=== PATIENT | female | born 1980 | race African-American/Black ===

== ENCOUNTER 2019-09-20 09:40 | Emergency (ER) | payer OTHER ==
[2019-09-20 09:45] VITALS: BMI 30.3
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
[2019-09-20 10:59] VITALS: BP 113/73; PULSE 69; TEMP 99.7
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
== END 2019-09-20 11:40 | disposition home or self-care (01) ==
LOC: JER 09:40
DX: S50.311A Abrasion of right elbow, initial encounter (principal); S70.311A Abrasion, right thigh, initial encounter; R22.42 Localized swelling, mass and lump, left lower limb; Z3A.32 32 weeks gestation of pregnancy; W19.XXXA Unspecified fall, initial encounter
CPT/HCPCS: 99282-25

== ENCOUNTER 2019-11-12 08:10 | Inpatient (IN) | payer OTHER ==
[2019-11-12] MEDS ORDERED: CITRIC ACID/SODIUM CITRATE 30 ML UNIT-DOSE CUP PO ONE (09:43)
[2019-11-12] MEDS ORDERED: ELECTROLYTE-148 SOLN 1,000 ML IV SCH (09:45)
--- NOTE | 2019-11-12 09:51 | HP ---
Past Medical History - Admission Chief Complaint: Elective History Source: Patient Limitations to Obtaining History: No Limitations - Past Medical History ...: 1 ...Para: 0 - Past Surgical History Past Surgical History: Yes: None Hx Myomectomy: No Hx Transabdominal Cerclage: No - Smoking History Smoking history: Never smoked - Alcohol/Substance Use Hx Alcohol Use: No History of Substance Use: reports: None - Social History Usual Living Arrangement: Yes: With Spouse History of Recent Travel: No Home Medications - Allergies Allergies/Adverse Reactions: Allergies Allergy/AdvReac Type Severity Reaction Status Date / Time fluconazole Allergy Verified 11/12/19 10:47 tree nut Allergy Verified 09/20/19 09:43 Family Medical History Family History: Unremarkable Review of Systems - Review of Systems Constitutional: reports: No Symptoms Eyes: reports: No Symptoms HENT: reports: No Symptoms Neck: reports: No Symptoms Cardiovascular: reports: No Symptoms Respiratory: reports: No Symptoms Gastrointestinal: reports: No Symptoms Genitourinary: reports: No Symptoms Breasts: reports: No Symptoms Reported Musculoskeletal: reports: No Symptoms Psychiatric: reports: No Symptoms Pain Intensity: 0 Physical Exam - Maternity Constitutional: Yes: No Distress Eyes: Yes: Conjunctiva Clear HENT: Yes: Atraumatic Neck: Yes: Supple Cardiovascular: Yes: Regular Rate and Rhythm Lungs: Clear to auscultation - Abdominal Exam/OB Number of Fetuses: Single Presentation: Vertex - Physical Exam Musculoskeletal: Yes: WNL Extremities: Yes: WNL ...Motor Strength: WNL Psychiatric: Yes: Alert, Oriented Problem List - Problems (1) 39 weeks gestation of Problems reviewed: Yes Code(s): Z3A.39 - 39 WEEKS GESTATION OF (2) Placenta previa Problems reviewed: Yes Code(s): O44.00 - COMPLETE PLACENTA PREVIA NOS OR WITHOUT HEMOR, UNSP TRI Qualifiers: Trimester: third trimester Qualified Code(s): O44.03 - Complete placenta previa NOS or without hemorrhage, third trimester Assessment/Plan 39 weeks gestation Marginal Placenta Previa Pre op for primary Consent signed Anesthesia to see patient
[2019-11-12] MEDS ORDERED: morphine SULFATE/PF 0.5 MG/ML (2cc Syringe - QUVA) EP ONE (10:23)
[2019-11-12] MEDS ORDERED: ONDANSETRON 4 MG/2 ML VIAL IVPUSH PRN (10:23)
[2019-11-12 10:28] VITALS: BMI 28.6
[2019-11-12 10:57] LABS: INR 0.93 (0.83-1.09)
[2019-11-12 11:00] LABS: ACTIVATED PTT 26.9 SECONDS (25.2-36.5)
[2019-11-12 11:31] LABS: ALBUMIN 2.9 g/dl (3.4-5.0); BILIRUBIN,TOTAL 0.6 mg/dL (0.2-1); BLOOD UREA NITROGEN 4.1 mg/dL (7-18); CALCIUM 8.8 mg/dL (8.5-10.1); CREATININE 0.6 mg/dL (0.55-1.3); TOT PROT 6.5 g/dl (6.4-8.2)
[2019-11-12] MEDS ORDERED: morphine SULFATE/PF 0.5 MG/ML (2cc Syringe - QUVA) ONE (12:13)
[2019-11-12] MEDS ORDERED: OXYTOCIN 10 UNITS/ML VIAL ONE ×2 (12:33→12:46)
[2019-11-12] MEDS ORDERED: ceFAZolin SODIUM 1 GM VIAL ONE (12:33)
[2019-11-12] MEDS ORDERED: METHYLERGONOVINE MALEATE 0.2 MG/1 ML AMP IM PRN (13:46)
[2019-11-12] MEDS ORDERED: IBUPROFEN 800 MG/8 ML IJ IVPB PRN (13:46)
--- NOTE | 2019-11-12 13:52 | OP ---
Operative Note - Note: Operative Date: 11/12/19 Pre-Operative Diagnosis: Marginal Placenta Previa Operation: Primary Low Transverse Findings: Baby boy in LOT position Post-Operative Diagnosis: Same as Pre-op Surgeon: Sara Arias Transporter Driver: Sai Tinoco Anesthesiologist/BUSINESS ANALYST CONSULTANT: Alexei Carrion Anesthesia: Spinal Specimens Removed: Placenta Estimated Blood Loss (mls): 600 Operative Report Dictated: Yes
[2019-11-12] MEDS: OXYTOCIN 20 UNITS in 0.9% NS 20 UNIT/1,000 ML INFUS.BAG IV SCH (14:23)
[2019-11-12] MEDS ORDERED: OXYTOCIN 20 UNITS in 0.9% NS 20 UNIT/1,000 ML INFUS.BAG IV ONE (14:27)
[2019-11-12] MEDS: FERROUS SO4 325 MG TABLET (FP) PO SCH (17:44)
[2019-11-13] MEDS: OXYTOCIN 20 UNITS in 0.9% NS 20 UNIT/1,000 ML INFUS.BAG IV SCH (05:35)
--- NOTE | 2019-11-13 06:32 | PN ---
Post Progress Note - Subjective Subjective: 39 yo Para 1 status post primary , seen and evaluated. She c/o body itch. Post Day: 1 Type of Delivery: Primary C/S Vital Signs: Vital Signs Temperature 98.2 F 11/13/19 06:00 Pulse Rate 60 11/13/19 06:00 Respiratory Rate 18 11/13/19 06:00 Blood Pressure 134/54 L 11/13/19 06:00 O2 Sat by Pulse Oximetry (%) 98 11/13/19 06:00 Breast Exam: Yes: Soft Incision: Yes: Dressing dry and intact Abdomen/GI: Yes: Abdomen soft Lochia: Yes: Rubra Lochia, amount: Small Extremities: Yes: Calves non-tender Activity: Other (She's lying in bed) Problem List - Problems (1) 39 weeks gestation of Code(s): Z3A.39 - 39 WEEKS GESTATION OF (2) Placenta previa Code(s): O44.00 - COMPLETE PLACENTA PREVIA NOS OR WITHOUT HEMOR, UNSP TRI Qualifiers: Trimester: third trimester Qualified Code(s): O44.03 - Complete placenta previa NOS or without hemorrhage, third trimester (3) Status post primary low transverse section Code(s): Z98.891 - HISTORY OF UTERINE SCAR FROM PREVIOUS SURGERY Assessment/Plan Status post primary Benadryl for itch. Ambulation Analgesia as needed Continue routine post op care
[2019-11-13] MEDS: FERROUS SO4 325 MG TABLET (FP) PO SCH ×2 (07:53→17:25)
[2019-11-13] MEDS: PRENATAL VITAMINS W/ FOLIC ACID TABLET (FP) PO SCH (09:08)
[2019-11-13 10:03] LABS: BASO % 0.3 % (0-2.0); EOS % 1.9 % (0-4.5); HEMATOCRIT 32.8 % (32.4-45.2); LYMPH % 13.9 % (8-40); MCH 30.3 pg (25.7-33.7); MCHC 33.5 g/dl (32.0-36.0); MEAN CELL VOLUME 90.5 fl (80-96); MONO % 5.3 % (3.8-10.2); NEUT % 78.6 % (42.8-82.8); PLATELET COUNT 196 K/MM3 (134-434); RBC 3.62 M/mm3 (3.60-5.2); RDW 15.6 % (11.6-15.6); WHITE BLOOD COUNT 7.9 K/mm3 (4.0-10.0)
--- NOTE | 2019-11-13 10:34 | PN ---
Progress Note (short form) - Note Progress Note: 39F s/p C/S under spinal with duramorph. Doing well. No new c/o. Vital Signs Temp 98.2 F 11/13/19 06:00 Pulse 60 11/13/19 06:00 Resp 18 11/13/19 06:00 BP 134/54 L 11/13/19 06:00 Pulse Ox 98 11/13/19 06:00 Intake & Output 11/12/19 11/12/19 11/13/19 11:59 23:59 11:59 Intake Total 2400 Output Total 196 645 1446 Balance -400 -950 650 Weight 172 lb Intake: IV 1200 NORMAL SALINE+20 UNITS 1200 OXYTOCIN - 20 unit In 1, 000 ml @ 125 mls/hr IV ASDIR [facility] Rx#:[id number] Oral 1200 Output: Urine [id number] Rudolph [id number] Other: Voiding Method Toilet Indwelling Catheter Height 5 ft 5 in Body Mass Index (BMI) 28.6 Weight 7 lb 4 oz Length 19.5 in Weight Measurement Method Stated by Patient - No anesthesia complications
[2019-11-13] MEDS ORDERED: diphenhydrAMINE HCL 25 MG CAPSULE (FP) PO PRN (10:47)
[2019-11-13] MEDS ORDERED: BISACODYL 10 MG SUPP.RECT RC PRN (13:46)
[2019-11-13] MEDS: IBUPROFEN 600 MG TABLET (FP) PO PRN (16:11)
[2019-11-13] MEDS: SIMETHICONE 80 MG TAB.CHEW (FP) PO PRN (16:12)
--- NOTE | 2019-11-13 20:01 | OP ---
DATE OF OPERATION: 11/12/2019 PREOPERATIVE DIAGNOSIS: Marginal placenta previa. POSTOPERATIVE DIAGNOSIS: Marginal placenta previa. PROCEDURE: Primary low transverse section. SURGEON: Sara Arias MD GENERAL EDUCATION PROFESSOR: ASPEN Maddox ANESTHESIA: Spinal. COMPLICATIONS: None. ESTIMATED BLOOD LOSS: 600 mL. DESCRIPTION OF PROCEDURE: Patient was taken to the operating room where spinal anesthesia was administered. Patient was then prepped and draped in proper sterile fashion. A Pfannenstiel skin incision was made and carried down to the underlying layer of fascia. The fascia was incised in the midline and extended laterally. The inferior aspect of the fascial incision was then grasped with a Pradeep clamp, elevated, and the rectus muscle dissected off bluntly. Attention was then turned to the superior aspect of the fascial incision which, in a similar fashion, was then grasped with Pradeep clamps, elevated, and the rectus muscles dissected off bluntly. The rectus muscle was then in the midline. The peritoneum identified and entered sharply with the Metzenbaum scissors. This incision was extended superiorly and inferiorly with good visualization of the bladder. Then, the vesicouterine peritoneum was then grasped with a pickup and entered sharply with the Metzenbaum scissors. This incision was extended laterally and a bladder flap created digitally. The bladder blade was inserted. Then, the lower uterine segment was incised using a 10-blade. This incision was extended laterally and the head delivered atraumatically. Nose and mouth were suctioned and the cord clamped and cut. The was handed to the waiting market risk specialist. The placenta was removed manually. The uterus exteriorized and cleared of all clots and debris. The uterine incision was repaired using 0 Biosyn in a running locked fashion. A second layer of the same suture was used as a means to provide excellent hemostasis. Then, the pelvis was then completely irrigated. The uterus was returned to the abdomen. Then, the peritoneum was closed using 2-0 Biosyn. The fascia was reapproximated using 0 Vicryl in a running fashion, and the skin was closed in a subcuticular fashion using 3-0 Vicryl. Patient tolerated the procedure well. Patient was then taken to PACU in stable condition. PATHOLOGY: Placenta. Nona NAVARRO/[id number]
[2019-11-14] MEDS: IBUPROFEN 600 MG TABLET (FP) PO PRN ×2 (07:53→17:42)
[2019-11-14] MEDS: FERROUS SO4 325 MG TABLET (FP) PO SCH ×2 (07:53→17:42)
[2019-11-14] MEDS: SIMETHICONE 80 MG TAB.CHEW (FP) PO PRN ×2 (07:53→20:38)
[2019-11-14] MEDS: PRENATAL VITAMINS W/ FOLIC ACID TABLET (FP) PO SCH (09:09)
--- NOTE | 2019-11-14 11:52 | PN ---
Post Progress Note - Subjective Subjective: 39 yo Para 1 status post primary , seen and evaluated. Doing well. Post Day: 2 Type of Delivery: Primary C/S Vital Signs: Vital Signs Temperature 98.2 F 11/13/19 20:49 Pulse Rate 93 H 11/13/19 20:49 Respiratory Rate 18 11/13/19 20:49 Blood Pressure 113/78 11/13/19 20:49 O2 Sat by Pulse Oximetry (%) 98 11/13/19 20:49 Breast Exam: Yes: Soft Uterus: Yes: Fundus below umbilicus Incision: Yes: Other (Steri strips in place) Lochia: Yes: Rubra Lochia, amount: Small Extremities: Yes: Calves non-tender Activity: Ambulating - Labs Labs: CBC WBC 7.9 K/mm3 (4.0-10.0) 11/13/19 09:05 RBC 3.62 M/mm3 (3.60-5.2) 11/13/19 09:05 Hgb 11.0 GM/dL (10.7-15.3) 11/13/19 09:05 Hct 32.8 % (32.4-45.2) 11/13/19 09:05 MCV 90.5 fl (80-96) 11/13/19 09:05 MCH 30.3 pg (25.7-33.7) 11/13/19 09:05 MCHC 33.5 g/dl (32.0-36.0) 11/13/19 09:05 RDW 15.6 % (11.6-15.6) 11/13/19 09:05 Plt Count 196 K/MM3 (134-434) 11/13/19 09:05 MPV 8.0 fl (7.5-11.1) 11/13/19 09:05 Absolute Neuts (auto) 6.2 K/mm3 (1.5-8.0) 11/13/19 09:05 Neutrophils % 78.6 % (42.8-82.8) 11/13/19 09:05 Lymphocytes % 13.9 % (8-40) D 11/13/19 09:05 Monocytes % 5.3 % (3.8-10.2) 11/13/19 09:05 Eosinophils % 1.9 % (0-4.5) 11/13/19 09:05 Basophils % 0.3 % (0-2.0) 11/13/19 09:05 Nucleated RBC % 0 % (0-0) 11/13/19 09:05 Problem List - Problems (1) 39 weeks gestation of Code(s): Z3A.39 - 39 WEEKS GESTATION OF (2) Placenta previa Code(s): O44.00 - COMPLETE PLACENTA PREVIA NOS OR WITHOUT HEMOR, UNSP TRI Qualifiers: Trimester: third trimester Qualified Code(s): O44.03 - Complete placenta previa NOS or without hemorrhage, third trimester (3) Status post primary low transverse section Code(s): Z98.891 - HISTORY OF UTERINE SCAR FROM PREVIOUS SURGERY Assessment/Plan Status post primary Ambulation Analgesia as needed Continue routine post op care
[2019-11-14] MEDS: oxyCODONE HCL 5 MG TABLET PO PRN (20:38)
[2019-11-15] MEDS: oxyCODONE HCL 5 MG TABLET PO PRN (02:22)
[2019-11-15] MEDS: IBUPROFEN 600 MG TABLET (FP) PO PRN ×2 (02:22→09:40)
[2019-11-15] MEDS: SIMETHICONE 80 MG TAB.CHEW (FP) PO PRN ×2 (02:23→09:41)
[2019-11-15 09:21] LABS: BASO % 0.5 % (0-2.0); EOS % 3.8 % (0-4.5); HEMATOCRIT 30.8 % (32.4-45.2); HEMOGLOBIN 10.2 GM/dL (10.7-15.3); LYMPH % 36.9 % (8-40); MCH 29.8 pg (25.7-33.7); MCHC 33.2 g/dl (32.0-36.0); MEAN CELL VOLUME 89.9 fl (80-96); MEAN PLT VOLUME 7.1 fl (7.5-11.1); MONO % 7.7 % (3.8-10.2); NEUT % 51.1 % (42.8-82.8); PLATELET COUNT 236 K/MM3 (134-434); RBC 3.43 M/mm3 (3.60-5.2); RDW 15.8 % (11.6-15.6)
[2019-11-15] MEDS: FERROUS SO4 325 MG TABLET (FP) PO SCH (09:41)
[2019-11-15] MEDS: PRENATAL VITAMINS W/ FOLIC ACID TABLET (FP) PO SCH (09:42)
[2019-11-15 13:33] VITALS: BP 125/85; PULSE 75; TEMP 98
--- NOTE | 2019-11-17 15:25 | DS ---
Physical Exam-VERIFICATION REP Vital Signs: Vital Signs Temperature 98 F 11/15/19 10:00 Pulse Rate 75 11/15/19 10:00 Respiratory Rate 20 11/15/19 10:00 Blood Pressure 125/85 11/15/19 10:00 O2 Sat by Pulse Oximetry (%) 100 11/15/19 10:00 Constitutional: Yes: No Distress Eyes: Yes: Conjunctiva Clear HENT: Yes: Atraumatic Neck: Yes: Supple Cardiovascular: Yes: Regular Rate and Rhythm Respiratory: Yes: Regular Gastrointestinal: Yes: Normal Bowel Sounds Pelvis: Yes: WNL External Genitalia: Yes: Normal Vaginal Exam: Yes: Normal Cervix: Yes: Normal Uterus: Yes: Firm Musculoskeletal: Yes: WNL Neurological: Yes: Alert, Oriented ...Motor Strength: WNL Psychiatric: Yes: Alert, Oriented Labs: CBC, BMP 11/15/19 09:09 11/12/19 10:26 Delivery - Delivery Type of Anesthesia: Spinal Episiotomy/Laceration: None EBL (cc): 600 Delivery, Single - Stages of Labor Date of Delivery: 11/12/19 Time of Delivery: 12:35 Time Placenta Delivered: 12:36 - Condition of Fuel Cell Builder/Lead Generation Marketing Manager Present: Yes Name: Adal Conteh Infant Gender: Male Weight: 7 lb 4 oz Position: Left, OT Total Hours ROM (Hrs/Mins): 3mins - 1 Minute Total Score: 9 5 Minutes Total Score: 9 - Feeding Plan Initial Plan: Exclusive throughout hospitalization Discharge Summary Problems reviewed: Yes Reason For Visit: C SECTION Procedures: Principal: Primary Low Transverse Hospital Course: Routine post op care Health Concerns: None Plan of Treatment: Ambulation Analgesia as needed F/U with MD in 1 week Goals: Resume regular activities in 4 weeks Condition: Good - Instructions Diet, Activity, Other Instructions: Regular diet No driving, no lifting x 4 weeks F/U with MD in one week Disposition: HOME - Home Medications Comprehensive Discharge Medication List: Ambulatory Orders Ibuprofen [Motrin -] 600 mg PO Q4H PRN #60 tablet 11/15/19
--- NOTE | 2019-11-22 11:56 | PATH ---
Surgical Pathology Report Patient Name: RASTA GARCIA Med. Rec. #: [id number] /Age/Gender: 1980 (Age: 39) / F Account: [id number] Location: [facility] OBS/TYPE CUTTER Taken: 11/12/2019 Received: 11/16/2019 Reported: 11/22/2019 Physicians: Sara Arias M.D. Specimen(s) Received PLACENTA Clinical History 39 weeks gestation, marginal placenta previa Final Diagnosis PLACENTA: THIRD TRIMESTER PLACENTA WITH FOCAL INCREASED SYNCYTIAL KNOTS AND PERIVILLOUS FIBRIN DEPOSITION. TRIVASCULAR CORD. MEMBRANES WITH NO DIAGNOSTIC ABNORMALITIES. Electronically Signed Lizzy Jaeger M.D. Gross Description The specimen is received fresh labeled placenta and is a 430 gram, 18.0 x 14.5 x 2.3 cm. placenta with attached membranes and umbilical cord. The attached membranes are cortez, translucent with focal opacities and insert marginally. The umbilical cord measures 18 cm. in length and averages 1 cm. in diameter. The cord inserts eccentrically, 4.5 cm. to the nearest margin. No true knots or strictures are identified. Cut surface of the umbilical cord reveals 3 vessels. The surface is tay-blue with minimal fibrin deposition and appropriate caliber vessels. The maternal surface is red-brown with focal defects. Sectioning reveals red-brown, spongy parenchyma. No lesions are identified. Audio Engineer sections are submitted in three cassettes as follows: 1- membrane rolls and umbilical cord; 2-3- full thickness sections of placenta. 11/18/2019 saudi11/18/2019
== END 2019-11-15 12:00 | disposition home or self-care (01) | DRG 540 ==
LOC: JLDR 08:10 → J3N 15:00 → J3W 11-14 17:28
PROVIDERS: ADMIT Obstetrics & Gynecology; ATTEND Obstetrics & Gynecology
PROC: 10D00Z1 Extraction of Products of Conception, Low, Open Approach (ICD-10-PCS; principal; 2019-11-12)
DX: O82 Encounter for cesarean delivery without indication (principal); O44.23 Partial placenta previa NOS or without hemorrhage, third trimester; Z3A.39 39 weeks gestation of pregnancy; Z37.0 Single live birth; L29.8 Other pruritus
CPT/HCPCS: 36415; 80053; 85025; 85610; 85730; 86780; 86850; 86900; 86901; 86922; 88307-TC